=== PATIENT | female | born 1945 | race Caucasian/White ===

== ENCOUNTER → 2018-04-04 09:53 | Outpatient (CLI) | payer MEDICARE, BC ==
[2011-10-22 00:01] VITALS: BMI 27.3
[~2018-04-04 09:53] MED LIST: CYMBALTA60 MG PO; DULERA 200 MCG8.8 GM INH; XANAX0.5 MG PO; ZYRTEC-D T1 TAB.SR . PO
[2018-04-16 10:04] VITALS: BMI 27.3
== END | disposition home or self-care (01) ==
LOC: D.NM 04-03 10:15
DX: M25.562 Pain in left knee (principal); M25.561 Pain in right knee; M54.5 Low back pain

== ENCOUNTER 2018-04-16 07:40 | Day surgery (SDC) | payer MEDICARE, BC ==
[2018-04-11 13:06] LABS: BASOPHILS 1.1 % (0-2); EOSINOPHILS 2.6 % (0-7); HEMATOCRIT 32.5 % (36.0-48.0); IMMATURE GRANULOCYTES 0.3 % (0-5); LYMPHOCYTES 19.1 % (15-50); MCH 23.8 pg (26.0-34.0); MCHC 30.8 g/dL (31.0-37.0); MCV 77.2 fL (80.0-100.0); MEAN PLATELET VOLUME 8.9 fL (7.4-10.4); MONOCYTES 8.3 % (2-11); NEUTROPHILS 68.6 % (40-80); PLATELET COUNT 466 10x3/uL (130-400); RBC 4.21 10x6/uL (4.00-5.40); RDW 15.9 % (11.5-14.5); WBC 11.6 10x3/uL (4.8-10.8)
[2018-04-11 13:29] LABS: CALC OSMOLALITY 281 mosm/kg (275-300); CALCIUM 8.8 mg/dL (8.5-10.1); CARBON DIOXIDE 28.1 mmol/L (21.0-32.0); CHLORIDE - SERUM 106 mmol/L (98-107); CREATININE - SERUM 0.8 mg/dL (0.6-1.3); GLUCOSE 95 mg/dL (74-106); POTASSIUM - SERUM 3.2 mmol/L (3.5-5.1); SODIUM 142 mmol/L (136-145); UREA NITROGEN 10 mg/dL (7-18); eGFR NON AFRICAN AMERICAN 75 mL/min (90-120)
[2018-04-11 13:33] LABS: C-REACTIVE PROTEIN < 0.2 mg/dL (0.0-0.9)
[2018-04-11 14:13] LABS: ERYTHROCYTE SEDIMENTATION RATE 29 mm/hr (0-30)
[~2018-04-16] VITALS: Ht 152.4 cm; Wt 63.5 kg
[~2018-04-16 07:40] MED LIST changes: -ZYRTEC-D T1 TAB.SR . PO
[2018-04-16] MEDS ORDERED: ZYRTEC-D T1 TAB.SR . PO (09:38)
[2018-04-16 10:04] VITALS: BP 137/64; Ht 152.4 cm; Wt 63.5 kg
== END 2018-04-16 18:10 | disposition home or self-care (01) ==
LOC: D.OPS 07:40 → D.PAN 12:30 → D.OPS 12:30
PROVIDERS: Orthopaedic Surgery
DX: S83.232A Complex tear of medial meniscus, current injury, left knee, initial encounter (principal); S83.282A Other tear of lateral meniscus, current injury, left knee, initial encounter; M17.12 Unilateral primary osteoarthritis, left knee; M94.262 Chondromalacia, left knee; M65.862 Other synovitis and tenosynovitis, left lower leg; Z01.812 Encounter for preprocedural laboratory examination